=== PATIENT | female | born 1970 | race Caucasian/White ===

== ENCOUNTER 2017-10-21 20:09 | Emergency (ER) | payer SELFPAY ==
[2017-10-21 20:19] VITALS: BMI 21.7
[2017-10-21] MEDS ORDERED: ZOFRAN INJ 4 MG VIAL IVP ONE (20:55)
[2017-10-21] MEDS ORDERED: NS 1000 ML 1,000 ML IV ONE (20:56)
[2017-10-21] MEDS ORDERED: ZOFRAN INJ 4 MG VIAL ONE (20:58)
[2017-10-21] MEDS ORDERED: NS 1000 ML 1,000 ML ONE (20:58)
--- NOTE | 2017-10-21 21:04 | ED.ABDFE ---
HPI - Time seen Time seen: 20:57 - PCP Primary Care Physician: NFD - Complaint Chief Complaint Doctors Comments: Patient states she has been having nausea, vomiting and diarrhea for the past three days and has not been able to keep food or liquids down today. States has been having chills but denies fever,, cold or cough. Patient denies hematuria, ramonita. Patient states that she has not had any periods for years but has not had any [employer] surgies. States she does not have a local doctor. She smokes 1/2 pack cigarettes daily but denies alcohol usage. States she has been sucking ice because she could not keep anything else down. States she has been having nocturia but denies hematuria. States she has been taking Pepto Bismol and mylanta without improvement. Chief Complaint:: ABD PAIN, N/V/D FOR THE LAST 3 DAYS. I JUST CAN'T DEAL WITH IT ANYMORE. - Nurses notes reviewed Nurses Notes Review: Yes - Source History Provided: Patient, EMS - Mode of arrival Mode of Arrival: Ambulatory - Timing Onset of Chief Complaint: 10/18/17 Came on: Gradually - Duration Duration: Constant How lon Duration: Days - Location Location: Diffuse - Severity Severity: Moderate - Quality Quality: Burning, Cramping, Sharp, Generalized - Context Onset: Gradually, At Rest History of: Similar pain (dx) - Modifying Worsening Factors: Nothing Improving Factors: Nothing - Associated signs and symptoms Associated Signs and Symptoms: Nausea, Vomiting, Diarrhea, Frequency PMH - PMH Past Medical History: No Past Surgical History: No - Family History History of Family Medical Conditions: No - Social History Type of Tobacco Use: Cigarettes Alcohol Use: None Do you use any recreational Drugs:: No Lives With: Family Lives Where: Home - infectious screening Have you traveled outside the country in the last 6 months?: No Isolation: Standard ROS - Review of Systems Constitutional: No Symptoms Reported, Chills, Weakness, Loss of Appetite. negative: See HPI, Diaphoresis, Fever, Malaise, Irritable, Fatigue, Other Eyes: No Symptoms Reported. negative: See HPI, Eye Pain, Blurred Vision, Tearing, Discharge, Photophobia, Diplopia, Other ENTM: No Symptoms Reported. negative: See HPI, Ear Pain, Ear Discharge, Pulling on Ears, Hearing Loss, Nose Pain, Nose Discharge, Epistaxis, Nose Congestion, Mouth Pain, Mouth Swelling, Loose Teeth, Drooling, Throat Pain, Throat Swelling, Ear Foreign Body Respiratoy: No Symptoms Reported. negative: See HPI, Productive Cough, Non- Productive Cough, Moist Cough, Dry Cough, Hacking Cough, Barking Cough, Brassy Cough, Orthopnea, Short of Breath, Stridor, Wheezing, Hemoptysis, Other Cardiovascular: No Symptoms Reported. negative: See HPI, Chest Pain, Edema, Palpitations, Syncope, Cyanosis, Skin Mottling, Other Gastrointestinal/Abdominal: No Symptoms Reported, Abdominal Pain, Diarrhea, Nausea, Vomiting. negative: See HPI, Constipation, Food Intolerance, Other Genitourinary: No Symptoms Reported, Frequency. negative: See HPI, Discharge, Dysuria, Hematuria, Pain, Bleeding, Other Neurological: No Symptoms Reported Musculoskeletal: No Symptoms Reported Integumentary: No Symptoms Reported. negative: See HPI, Change in Color, Change in Hair/Nails, Dryness, Lesions, Lumps, Rash, Itching, Wound, Bruises, Juandice, Other Hematologic/Lymphatic: No Symptoms Reported Endocrine: No Symptoms Reported Psychiatric: No Symptoms Reported PE - Vital Signs Vitals: Temperature 98.1 F Pulse Rate [Right Brachial] 90 Pulse Rate 112 Respiratory Rate 16 Blood Pressure [Right Arm] 125/81 Blood Pressure 139/99 O2 Sat by Pulse Oximetry 99 - General Limitations: No Limitations. negative: Language Barrier, Altered Mental Status , Physical Limitation, Other General Appearance: Alert, In Distress (moderated) - Head Head Exam: Normal Inspection, Atraumatic, Normocephalic - Eyes Eye exam: Normal Appearance, PERRL, EOMI. negative: Scleral Icterus, Conjunctival Injection, Nystagmus, Miosis, Mydrasis, Periorbital Swelling, Periorbital Tenderness, Other - ENT ENT Exam: Normal Exam, Normal Oropharynx, Normal External Ear Exam, Mucous Membranes Moist, TM's Normal Bilaterally - Neck Neck Exam: Normal Inspection, Full ROM, Trachea Midline. negative: Tenderness, Meningismus, Lymphadenopathy, Thyromegaly, Other - Chest Chest Inspection: Normal Inspection, Symmetric Chest Wall Rise. negative: Tenderness, Rash, Abscess, Other - Respiratory Respiratory Exam: Normal Lung Sounds Bilat. negative: Accessory Muscle Use, Chest Wall Tenderness, Prolonged Expiratory Phase, Respiratory Distress, Stridor , Other Respiratory Exam: Bilateral Clear to Auscultation - Cardiovascular Cardiovascular Exam: Regular Rate, Normal Rhythm, Normal Heart Sounds. negative : Bradycardia, Tachycardia, Irregular Rhythm, Systolic Murmur, Diastolic Murmur , Rubs, Gallop, Clicks, JVD, +S1, +S2, +S3, +S4, Other - Abdominal Exam Abdominal Exam: Normal Inspection, Normal Bowel Sounds, Soft, Tenderness ( epigastric and LUQ tenderness), Hyperactive Bowel Sounds. negative: Distention , Guarding, Rebound, Rigidity, Dimnished Bowel Sounds, Hypoactive Bowel Sounds, Organomegaly, Trauma, Incision, Ascites, Mass, Bruit, Pulsatile Mass, Hernia, Other Abdominal Tenderness: Epigastrium, Moderate - Rectal Rectal Exam: Deferred - Back Back Exam: Normal Inspection, Full ROM. negative: Tenderness, (R) CVA Tenderness, (L) CVA Tenderness, Muscle Spasm, Paraspinal Tenderness, Vertebral Tenderness, Rashes, (R) Sciatic Notch Tenderness, (L) Sciatic Notch Tendern, (R ) Straight Leg Raise, (L) Straight Leg Raise, Other - Extremeties Extremities Exam: Normal Inspection, Full ROM - External Exam: Female: Deferred : Speculum Exam (Female): Deferred : Bimanual Exam (female): Deferred - Neurologic Neurological Exam: Alert, Oriented X3, CN II-XII Intact, Normal Gait, Reflexes Normal - Psychiatric Psychiatric Exam: Normal Affect, Normal Mood - Skin Skin Exam: Warm, Dry, Intact, Normal Color ROR - Labs Reviewed Laboratory Results Reviewed?: Yes (all labs and x-ray results reviewed and discussed with patient and family) Result Diagrams: 10/21/17 21:14 10/21/17 21:14 Laboratory: WBC 6.4 X10^3/uL (3.6-10.0) 10/21/17 21:14 RBC 5.27 X10^6/uL (3.5-5.4) 10/21/17 21:14 Hgb 15.9 g/dL (12.0-16.0) 10/21/17 21:14 Hct 45.6 % (36.0-47.0) 10/21/17 21:14 MCV 86.5 fL (80.0-100.0) 10/21/17 21:14 MCH 30.2 pg (27.0-34.0) 10/21/17 21:14 MCHC 35.0 g/dL (33.0-35.0) 10/21/17 21:14 RDW 13.8 % (11.6-16.5) 10/21/17 21:14 Plt Count 321 X10^3/uL (150.0-450.0) 10/21/17 21:14 Plt Count Comment Adequate (ADEQUATE) 10/21/17 21:14 MPV 7.3 fL (7.4-11.0) L 10/21/17 21:14 Neut % (Auto) 63.5 % (42.0-75.0) 10/21/17 21:14 Lymph % (Auto) 26.2 % (21.0-51.0) 10/21/17 21:14 Faulk % (Auto) 9.5 % (0.0-13.0) 10/21/17 21:14 Eos % (Auto) 0.4 % (0.9-2.9) L 10/21/17 21:14 Baso % (Auto) 0.4 % (0.2-1.0) 10/21/17 21:14 Neut # (Auto) 4.1 x10^3/uL (2.2-4.8) 10/21/17 21:14 Lymph # (Auto) 1.7 X10^3/uL (1.3-2.9) 10/21/17 21:14 Faulk # (Auto) 0.6 x10^3/uL (0.3-0.8) 10/21/17 21:14 Eos # (Auto) 0.0 x10^3/uL (0.0-0.2) 10/21/17 21:14 Baso # (Auto) 0.0 X10^3/uL (0.0-0.1) 10/21/17 21:14 Absolute Nucleated RBC 0.1 /100WBC 10/21/17 21:14 Total Counted 100 10/21/17 21:14 Neutrophils % (Manual) 56 % (39-76) 10/21/17 21:14 Band Neutrophils % 3 % (0-10) 10/21/17 21:14 Lymphocytes % (Manual) 26 % (13-43) 10/21/17 21:14 Monocytes % (Manual) 13 % (4-9) H 10/21/17 21:14 Eosinophils % (Manual) 2 % (0-6) 10/21/17 21:14 Plt Morphology Comment Normal (NORMAL) 10/21/17 21:14 RBC Morphology Normal (NORMAL) 10/21/17 21:14 Sodium 137 mmol/L (136-145) 10/21/17 21:14 Corrected Sodium 138 mmol/L (136-145) 10/21/17 21:14 Potassium 3.5 mmol/L (3.5-5.1) 10/21/17 21:14 Chloride 103 mmol/L (98-107) 10/21/17 21:14 Carbon Dioxide 25.3 mmol/L (21-32) 10/21/17 21:14 BUN 14 mg/dL (7-18) 10/21/17 21:14 Creatinine 0.72 mg/dL (0.55-1.02) 10/21/17 21:14 Est GFR (MDRD) Af Amer > 60 (>60) 10/21/17 21:14 Est GFR (MDRD) Non-Af > 60 (>60) 10/21/17 21:14 Glucose 127 mg/dL (65-99) H 10/21/17 21:14 Calcium 7.7 mg/dL (8.5-10.1) L 10/21/17 21:14 Corrected Calcium 8.7 mg/dL (8.5-10.1) 10/21/17 21:14 Phosphorus 3.8 mg/dL (2.6-4.7) 10/21/17 21:14 Total Bilirubin 0.20 mg/dL (0.2-1.0) 10/21/17 21:14 AST 14 Units/L (15-37) L 10/21/17 21:14 ALT 8 Units/L (12-78) L 10/21/17 21:14 Alkaline Phosphatase 86 Units/L (46-116) 10/21/17 21:14 Total Protein 6.7 g/dL (6.4-8.2) 10/21/17 21:14 Albumin 2.7 g/dL (3.4-5.0) L 10/21/17 21:14 Globulin 4.0 g/dL (2.5-4.5) 10/21/17 21:14 Albumin/Globulin Ratio 0.7 Ratio (1.1-2.1) L 10/21/17 21:14 Amylase 12 Units/L (25-115) L 10/21/17 21:14 Lipase 34 Units/L (73-393) L 10/21/17 21:14 HCG, Qual Negative <10 mIU/mL 10/21/17 21:14 - XRAY XRAY Interpreted by: Radiologist (CT abdomen and pelvis: Moderate fluid and gaseous distention of the stomach and diffuse fluid throughout can be seen in gastroenteritis.) - Diagnosis Discharge Problem: Gastroenteritis, Hypocalcemia, Hyperglycemia - Discharge Plan Disposition: HOME, SELF-CARE Condition: Stable Prescriptions: Calcium Carb + Vit D [OSCAL+D or CALTRATE+D] 1 tab PO TID PRN #21 tab PRN Reason: Ciprofloxacin HCl [CIPRO 500 MG TAB *] 500 mg PO Q12H #20 tab Diphenoxylate/Atropine [Lomotil] 1 tab PO BID #14 tab Ondansetron [Zofran Odt] 4 mg PO Q8H PRN #12 tab PRN Reason: Nausea/Vomiting - Follow ups/Referrals Follow ups/Referrals: NFD,None [Primary Care Provider] - 3 days Stan Padron [STAFF PHYSICIAN] - 3 days - Instructions Instructions: Viral Gastroenteritis, Adult, Hyperglycemia, Calcium Intake Recommendations
[2017-10-21 21:34] LABS: ALANINE AMINOTRANSFERASE 8 Units/L (12-78); ALBUMIN 2.7 g/dL (3.4-5.0); ALKALINE PHOSPHATASE 86 Units/L (46-116); AMYLASE 12 Units/L (25-115); ASPARTATE AMINO TRANSFERASE 14 Units/L (15-37); BLOOD UREA NITROGEN 14 mg/dL (7-18); CALCIUM 7.7 mg/dL (8.5-10.1); CARBON DIOXIDE 25.3 mmol/L (21-32); CHLORIDE 103 mmol/L (98-107); COR CA(FOR HYPOALB) 8.7 mg/dL (8.5-10.1); COR NA(FOR HYPERGLY) 138 mmol/L (136-145); CREATININE 0.72 mg/dL (0.55-1.02); LIPASE 34 Units/L (73-393); SODIUM 137 mmol/L (136-145); TOTAL PROTEIN 6.7 g/dL (6.4-8.2); eGFR BLACK RACES > 60 (>60); eGFR NON BLACK RACES > 60 (>60)
[2017-10-21 21:35] LABS: BASOPHILS % (AUTO) 0.4 % (0.2-1.0); EOSINOPHILS % (AUTO) 0.4 % (0.9-2.9); HEMATOCRIT 45.6 % (36.0-47.0); HEMOGLOBIN 15.9 g/dL (12.0-16.0); LYMPHOCYTES # (AUTO) 1.7 X10^3/uL (1.3-2.9); LYMPHOCYTES % (AUTO) 26.2 % (21.0-51.0); MEAN CORPUSCULAR HEMOGLOBIN 30.2 pg (27.0-34.0); MEAN CORPUSCULAR VOLUME 86.5 fL (80.0-100.0); MEAN PLATELET VOLUME 7.3 fL (7.4-11.0); MONOCYTES # (AUTO) 0.6 x10^3/uL (0.3-0.8); MONOCYTES % (AUTO) 9.5 % (0.0-13.0); NEUTROPHILS # (AUTO) 4.1 x10^3/uL (2.2-4.8); NEUTROPHILS % (AUTO) 63.5 % (42.0-75.0); PLATELET COUNT 321 X10^3/uL (150.0-450.0); RED BLOOD COUNT 5.27 X10^6/uL (3.5-5.4); RED CELL DISTRIBUTION WIDTH 13.8 % (11.6-16.5); WHITE BLOOD COUNT 6.4 X10^3/uL (3.6-10.0)
[2017-10-21 21:39] LABS: BAND NEUTROPHILS % 3 % (0-10); PLATELET MORPHOLOGY COMMENT NORMAL (NORMAL)
--- NOTE | 2017-10-21 21:46 | CT ---
CT abdomen and pelvis without contrast Indication: Abdominal pain, nausea, vomiting, diarrhea Technique: Helical CT images of the abdomen and pelvis were obtained without IV contrast. Reformatted images in the coronal and sagittal planes were also generated for review. Comparison: None Findings: Lung bases are clear. No aggressive osseous lesions are identified. Within the limits of a noncontrast exam, the unenhanced liver, gallbladder, spleen, pancreas, and adr enals are grossly unremarkable. Both kidneys and visualized ureters are normal without radiopaque sto julio or hydroureteronephrosis. Evaluation of the GI tract is limited without intravenous or enteric contrast. Given these limitation s, the stomach is moderately distended with fluid and partially digested contents. There is also flui d throughout the normal caliber small bowel, which is nonspecific but can be seen with enteritis. Liq uid stool is also present throughout the colon, suggestive for nonspecific diarrheal illness. The marie endix is normal. There is no bowel obstruction. There is mild calcification of the abdominal aorta without aneurysm. The urinary bladder is collapsed but grossly normal. The uterus is either small or surgically absent. No free air, significant free f luid or bulky lymphadenopathy is identified. Impression: Moderate fluid and gaseous distention of the stomach and diffuse fluid throughout the normal caliber small bowel, which is nonspecific but can be seen with gastroenteritis. Correlation recommended. Liquid stool throughout the colon, suggestive for nonspecific diarrheal illness. Reported By:
[2017-10-21 21:47] LABS: SERUM PREGNANCY TEST, QUAL NEGATIVE <10 mIU/mL
[2017-10-21] MEDS ORDERED: LEVAQUIN TAB 500 MG PO STA (21:59)
[2017-10-21] MEDS ORDERED: LOMOTIL PO ONE (21:59)
[2017-10-21] MEDS ORDERED: LOMOTIL ONE (22:50)
[2017-10-21] MEDS ORDERED: LEVAQUIN TAB 500 MG ONE (22:50)
[2017-10-21 22:56] VITALS: BP 125/81
[2017-10-21] MEDS ORDERED: CALCIUM GLUCONATE IV ONE ×2 (23:07)
[2017-10-21] MEDS ORDERED: NS IV ONE ×2 (23:07)
[2017-10-21] MEDS ORDERED: NS 100 ML IV + SPIKE MINIBAG* 100 ML IV ONE (23:12)
[2017-10-21] MEDS ORDERED: CALCIUM GLUCONATE 10% IV ONE (23:12)
== END 2017-10-22 01:00 | disposition home or self-care (01) ==
LOC: ER 20:15
DX: R73.9 Hyperglycemia, unspecified (principal); K52.89 Other specified noninfective gastroenteritis and colitis; E83.51 Hypocalcemia
CPT/HCPCS: 36415; 74176; 80053; 82150; 83690; 84100; 84703; 85025; 96365; 96374; 96375; 99283; A4216; A4222; J0610; J2405